=== PATIENT | female | born 1935 | race African-American/Black ===

== ENCOUNTER 2017-03-08 09:08 | Outpatient (CLI) | payer MEDICARE, MEDICAID ==
[2017-03-08 09:50] LABS: Bilirubin Negative (Negative); Blood, Urine Negative (Negative); Clarity Clear (Clear); Glucose, Urine (Dipstick) Negative (Negative); Leukocyte Negative (Negative); Nitrite Negative (Negative); Protein, Urine (Dipstick) Negative (Neg-Trace); Urobilinogen 0.2 mg/dL (0.2-1.0); pH, Urine 6.5 (5.0-9.0)
[2017-03-08 09:58] LABS: RBC/HPF 0-3 HPF (0-3); Squamous Epithelial 0-3 HPF (0-3); WBC/HPF 0-3 HPF (0-3)
[2017-03-08 09:59] LABS: Bacteria/HPF 1+ HPF (None Seen)
== END 2017-03-08 09:09 | disposition home or self-care (01) ==
LOC: BURLABSP 09:08
PROVIDERS: ATTEND Clinical Nurse Specialist Medical-Surgical
DX: N39.0 Urinary tract infection, site not specified (principal)
CPT/HCPCS: 81001; 87077; 87086

== ENCOUNTER 2017-08-02 15:19 | Emergency (ER) | payer MEDICARE, MEDICAID ==
--- NOTE | 2017-08-02 20:02 | RAD ---
PORTABLE CHEST 08/02/17 An AP portable film at 1558 is compared with a 12/14/16 study from [facility]. The vessels show a slight prominence, more so than the prior study. Very early congestive change is p ossible. It is difficult to assess the area behind the heart in the left base. I cannot exclude an in filtrate here, but cannot see well enough to be certain. There appears to be a calcified granuloma in the left apex. The right lung is relatively clear. The cardiac size is comparable to before. IMPRESSION: 1. Slight vascular prominence. 2. Equivocal haziness in the left base, not seen well enough to make any definitive diagnosis. POS: HOME
== END 2017-08-02 16:50 | disposition home or self-care (01) ==
LOC: BURERS 15:19
DX: R10.9 Unspecified abdominal pain (principal); E78.5 Hyperlipidemia, unspecified; K21.9 Gastro-esophageal reflux disease without esophagitis; I11.0 Hypertensive heart disease with heart failure; I50.9 Heart failure, unspecified; F41.9 Anxiety disorder, unspecified; F31.9 Bipolar disorder, unspecified; F20.9 Schizophrenia, unspecified; F03.90 Unspecified dementia, unspecified severity, without behavioral disturbance, psychotic disturbance, mood disturbance, and anxiety
CPT/HCPCS: 71045

== ENCOUNTER 2017-11-13 16:44 | Emergency (ER) | payer MEDICARE, MEDICAID ==
--- NOTE | 2017-11-13 18:18 | RAD ---
RIGHT WRIST THREE VIEW 11/13/17 HISTORY: Injury. Fracture. COMPARISON: None. FINDINGS: Evaluation of fine bony detail is limited due to the overlying cast. There is an ulnar styloid fractu re through the base, age indeterminate. Suspect radial styloid fracture although poorly evaluated. Sc apholunate interval is normal. IMPRESSION: Fracture through the ulnar styloid base, although is age indeterminate. Radial styloid possible fract ure. Recommend repeat without the overlying cast material. POS: [facility]
== END 2017-11-13 17:53 | disposition home or self-care (01) ==
LOC: BURERS 16:44
DX: S52.614A Nondisplaced fracture of right ulna styloid process, initial encounter for closed fracture (principal); S52.501A Unspecified fracture of the lower end of right radius, initial encounter for closed fracture; E78.5 Hyperlipidemia, unspecified; K21.9 Gastro-esophageal reflux disease without esophagitis; I11.0 Hypertensive heart disease with heart failure; I50.9 Heart failure, unspecified; F41.9 Anxiety disorder, unspecified; F31.9 Bipolar disorder, unspecified; F20.9 Schizophrenia, unspecified; Z79.899 Other long term (current) drug therapy; W19.XXXA Unspecified fall, initial encounter
CPT/HCPCS: 29125